=== PATIENT | female | born 2000 | race Caucasian/White ===

== ENCOUNTER 2019-03-24 18:42 | Emergency (ER) | payer SELFPAY ==
[2019-03-24 19:00] LABS: #Lymphocytes 1.8 thou/uL (1.20-3.40); #Monocytes 0.4 thou/uL (0.11-0.59); #Neutrophils 4.2 thou/uL (1.40-6.50); %Basophils 0.1 % (0.0-1.0); %Eosinophils 0.4 % (0.0-10.0); %Lymphocytes 28.3 % (28.0-48.0); %Monocytes 6.1 % (0.0-4.0); %Neutrophils 65.1 % (31.0-61.0); Hemoglobin 12.2 g/dL (12.0-16.0); Mean Corpuscular Hemoglobin 31.5 pg (25.0-35.0); Mean Corpuscular Volume 90.1 fL (78.0-98.0); Mean Platelet Volume 5.9 fL (7.4-10.4); Platelet Count 305 thou/uL (130-400); RBC Distribution Width 12.3 % (11.5-14.5); Red Blood Cell (RBC) Count 3.89 mill/uL (4.00-5.20); White Blood Cell (WBC) Count 6.5 thou/uL (4.8-10.8)
[2019-03-24 19:25] LABS: ALT (SGPT) 7 U/L (8-55); AST (SGOT) 15 U/L (5-34); Albumin 4.6 g/dL (3.5-5.0); Alkaline Phosphatase 33 U/L (40-150); Anion Gap 11 mmol/L (10-20); BUN (Urea Nitrogen) 14 mg/dL (7.0-18.7); Bilirubin, Total 0.3 mg/dL (0.2-1.2); Calc. Creatinine Clearance 0 mL/min (70-130); Calcium 9.5 mg/dL (7.8-10.44); Carbon Dioxide 25 mmol/L (22-29); Chloride 104 mmol/L (98-107); Estimated GFR-MDRD Greater than 90; Globulin 2.3 g/dL (2.4-3.5); Glucose 77 mg/dL (70-105); Lipase 16 U/L (8-78); Potassium 3.9 mmol/L (3.5-5.1); Protein, Total 6.9 g/dL (6.0-8.3); Sodium 136 mmol/L (136-145)
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
[2019-03-24 23:39] LABS: Bilirubin Negative (Negative); Blood, Urine Negative (Negative); Clarity Clear (Clear); Glucose, Urine (Dipstick) Normal (Negative); Leukocyte Negative Leu/uL (Negative); Nitrite Negative (Negative); Protein, Urine (Dipstick) 20 mg/dL (Neg-Trace); Urobilinogen Normal mg/dL (Less than 2)
[2019-03-24 23:44] LABS: Pregnancy Test - Urine (BHCG) Negative (Negative); Pregu Control Background? CLEAR/WHITE (CLR/WHITE); Pregu Control Bar Appear? YES (CONTROL BAR); Specific Gravity 1.034 (1.002-1.036)
[2019-03-28 00:08] LABS: Chlamydia by PCR Not Detected (NotDetected); GC by PCR Not Detected (NotDetected)
== END 2019-03-24 23:58 | disposition home or self-care (01) ==
LOC: ERS 18:42
DX: N76.0 Acute vaginitis (principal); N83.202 Unspecified ovarian cyst, left side; B96.89 Other specified bacterial agents as the cause of diseases classified elsewhere
CPT/HCPCS: 36415; 76856; 80053; 81003; 81025; 83690; 85025; 87480; 87491; 87510; 87591; 87660

== ENCOUNTER 2019-06-24 15:41 | Emergency (ER) | payer SELFPAY ==
[2019-06-24] MEDS ORDERED: Adacel (T-DAP) 0.5 ML SYRINGE ONE (16:42)
[2019-06-24] MEDS ORDERED: Ibuprofen 200 MG TAB ONE (16:42)
[2019-06-24] MEDS ORDERED: Bacitracin 1 PK ONE (16:42)
== END 2019-06-24 17:08 | disposition home or self-care (01) ==
LOC: ERS 15:41
DX: S00.33XA Contusion of nose, initial encounter (principal); S00.83XA Contusion of other part of head, initial encounter; W22.8XXA Striking against or struck by other objects, initial encounter
CPT/HCPCS: 90471; 90715

== ENCOUNTER 2019-10-14 23:16 | Inpatient (IN) | payer OTHER, SELFPAY ==
[~2019-10-14 23:16] MED LIST: Iopamidol 370 76% 100 ML VIAL ONE
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
[2019-10-14 23:48] LABS: #Lymphocytes 3.5 thou/uL (1.20-3.40); #Monocytes 0.5 thou/uL (0.11-0.59); #Neutrophils 10.1 thou/uL (1.40-6.50); %Basophils 0.3 % (0.0-1.0); %Eosinophils 0.3 % (0.0-10.0); %Lymphocytes 24.7 % (21.0-51.0); %Monocytes 3.7 % (0.0-10.0); Hemoglobin 11.6 g/dL (12.0-16.0); Mean Corpuscular HGB CONC 33.9 g/dL (32.0-36.0); Mean Corpuscular Hemoglobin 31.8 pg (27.0-31.0); Mean Corpuscular Volume 93.8 fL (78.0-98.0); Mean Platelet Volume 6.4 fL (7.4-10.4); Platelet Count 346 thou/uL (130-400); RBC Distribution Width 12.8 % (11.5-14.5); Red Blood Cell (RBC) Count 3.65 mill/uL (4.20-5.40); White Blood Cell (WBC) Count 14.1 thou/uL (4.8-10.8)
[2019-10-14 23:50] LABS: BHCG - Serum Negative (NEGATIVE); Pregs Control Background? CLEAR/WHITE (CLR/WHITE); Pregs Control Bar Appear? YES (CONTROL BAR)
[2019-10-14 23:58] LABS: ALT (SGPT) 16 U/L (8-55); AST (SGOT) 36 U/L (5-34); Albumin 3.9 g/dL (3.5-5.0); Alkaline Phosphatase 33 U/L (40-110); Anion Gap 13 mmol/L (10-20); BUN (Urea Nitrogen) 16 mg/dL (7.0-18.7); Bilirubin, Total 0.3 mg/dL (0.2-1.2); Calc. Creatinine Clearance 0 mL/min (70-130); Calcium 7.7 mg/dL (7.8-10.44); Carbon Dioxide 21 mmol/L (22-29); Chloride 109 mmol/L (98-107); Estimated GFR-MDRD Greater than 90; Globulin 2.3 g/dL (2.4-3.5); Glucose 130 mg/dL (70-105); Potassium 3.1 mmol/L (3.5-5.1); Protein, Total 6.2 g/dL (6.0-8.3); Sodium 140 mmol/L (136-145)
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
[2019-10-15] MEDS ORDERED: Morphine 4 MG/ML VIAL ONE
[2019-10-15] MEDS ORDERED: Ondansetron PF 4 MG/2 ML Vial ONE (00:01)
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
[2019-10-15 01:47] VITALS: BMI 23.1
[2019-10-15] MEDS ORDERED: Dextrose 50% Abboject 50 ML SYRINGE SLOW IVP PRN (01:48)
[2019-10-15] MEDS ORDERED: Dextrose 5% in Water 1,000 ML IV PRN (01:48)
[2019-10-15] MEDS ORDERED: Ondansetron ODT 4 MG TAB PO PRN (01:48)
[2019-10-15] MEDS ORDERED: Ondansetron PF 4 MG/2 ML Vial IVP PRN (01:48)
[2019-10-15] MEDS ORDERED: traMADol HCl 50 MG TAB PO PRN ×2 (01:48→22:20)
[2019-10-15] MEDS: traMADol HCl 50 MG TAB PO PRN ×2 (01:57→09:13)
[2019-10-15] MEDS: Sodium Chloride 0.9% 1,000 ML IV SCH ×3 (01:58→20:42)
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
[2019-10-15 02:42] LABS: Hemoglobin 10.6 g/dL (12.0-16.0)
[2019-10-15 04:10] LABS: Anion Gap 14 mmol/L (10-20); BUN (Urea Nitrogen) 15 mg/dL (7.0-18.7); Calc. Creatinine Clearance 105 mL/min (70-130); Calcium 7.9 mg/dL (7.8-10.44); Carbon Dioxide 20 mmol/L (22-29); Chloride 108 mmol/L (98-107); Estimated GFR-MDRD Greater than 90; Glucose 134 mg/dL (70-105); Sodium 138 mmol/L (136-145)
[2019-10-15 04:19] LABS: Band 32 % (5-11); Lymphocytes 2 % (21-51); MDiff Complete? YES; Mean Corpuscular HGB CONC 33.1 g/dL (32.0-36.0); Mean Corpuscular Hemoglobin 31.4 pg (27.0-31.0); Mean Corpuscular Volume 94.7 fL (78.0-98.0); Mean Platelet Volume 6.4 fL (7.4-10.4); Monocytes 3 % (0-10); Neutrophil 63 % (42-75); Platelet Count 295 thou/uL (130-400); Platelet Morphology Comment Appears Adequate; Red Blood Cell (RBC) Count 3.51 mill/uL (4.20-5.40); White Blood Cell (WBC) Count 22.4 thou/uL (4.8-10.8)
[2019-10-15] MEDS: Acetaminophen 325 MG TAB PO SCH ×2 (06:24→14:15)
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
[2019-10-15] MEDS: Famotidine 20 MG TAB PO SCH ×2 (09:12→20:41)
[2019-10-15 09:39] LABS: Hemoglobin 9.8 g/dL (12.0-16.0)
[2019-10-15] MEDS ORDERED: Acetaminophen 500 MG TAB PO PRN (12:56)
[2019-10-15] MEDS ORDERED: Ketorolac Tromethamine 30 MG/ML VIAL IVP PRN (12:56)
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
[2019-10-15 13:57] LABS: Hemoglobin 9.2 g/dL (12.0-16.0)
[2019-10-15 18:40] LABS: Hemoglobin 8.9 g/dL (12.0-16.0); Platelet Count 217 thou/uL (130-400)
[2019-10-15] MEDS: Cyclobenzaprine 10 MG TAB PO PRN (20:41)
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
[2019-10-16 03:35] LABS: Hemoglobin 8.2 g/dL (12.0-16.0); Platelet Count 188 thou/uL (130-400)
[2019-10-16] MEDS: Ferrous Sulfate 325 MG TAB PO SCH ×2 (09:35→16:03)
[2019-10-16] MEDS: traMADol HCl 50 MG TAB PO PRN (09:36)
[2019-10-16] MEDS: Ascorbic Acid 500 mg Chewable Tablet PO SCH (09:37)
[2019-10-16] MEDS: Acetaminophen 500 MG TAB PO SCH ×3 (09:42→20:51)
[2019-10-16] MEDS: Cyclobenzaprine 10 MG TAB PO PRN (12:20)
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
[2019-10-17] MEDS: traMADol HCl 50 MG TAB PO PRN ×3 (00:50→20:40)
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
[2019-10-17] MEDS: Acetaminophen 500 MG TAB PO SCH ×4 (02:23→20:16)
[2019-10-17 05:15] LABS: #Eosinphils 0.1 thou/uL (0.0-0.7); #Lymphocytes 1.6 thou/uL (1.20-3.40); #Monocytes 0.3 thou/uL (0.11-0.59); #Neutrophils 3.4 thou/uL (1.40-6.50); %Basophils 0.2 % (0.0-1.0); %Lymphocytes 29.7 % (21.0-51.0); %Monocytes 6.1 % (0.0-10.0); %Neutrophils 63.1 % (42.0-75.0); Hemoglobin 8.1 g/dL (12.0-16.0); Mean Corpuscular HGB CONC 34.1 g/dL (32.0-36.0); Mean Corpuscular Hemoglobin 31.9 pg (27.0-31.0); Mean Corpuscular Volume 93.6 fL (78.0-98.0); Mean Platelet Volume 6.4 fL (7.4-10.4); Platelet Count 199 thou/uL (130-400); RBC Distribution Width 12.9 % (11.5-14.5); Red Blood Cell (RBC) Count 2.54 mill/uL (4.20-5.40); White Blood Cell (WBC) Count 5.4 thou/uL (4.8-10.8)
[2019-10-17 05:37] LABS: Anion Gap 10 mmol/L (10-20); BUN (Urea Nitrogen) 10 mg/dL (7.0-18.7); Calc. Creatinine Clearance 113 mL/min (70-130); Calcium 8.2 mg/dL (7.8-10.44); Carbon Dioxide 26 mmol/L (22-29); Chloride 108 mmol/L (98-107); Estimated GFR-MDRD Greater than 90; Glucose 79 mg/dL (70-105); Phosphorus 3.5 mg/dL (2.3-4.7); Potassium 3.8 mmol/L (3.5-5.1); Sodium 140 mmol/L (136-145)
[2019-10-17] MEDS ORDERED: Bisacodyl 10 MG SUPP PR SCH (07:45)
[2019-10-17] MEDS: Gabapentin 100 MG CAP PO SCH ×2 (08:38→20:16)
[2019-10-17] MEDS: Ascorbic Acid 500 mg Chewable Tablet PO SCH (08:38)
[2019-10-17] MEDS: Senokot S 8.6-50 MG TAB PO SCH ×2 (08:39→20:16)
[2019-10-17] MEDS: Ferrous Sulfate 325 MG TAB PO SCH ×2 (08:39→17:18)
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
[2019-10-17] MEDS: Polyethylene Glycol 3350 17 GM Packet PO SCH (14:37)
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
[2019-10-18] MEDS: Acetaminophen 500 MG TAB PO SCH ×2 (02:47→09:05)
[2019-10-18 05:34] LABS: Hemoglobin 9.1 g/dL (12.0-16.0); Platelet Count 220 thou/uL (130-400)
[2019-10-18] MEDS: Ferrous Sulfate 325 MG TAB PO SCH (09:05)
[2019-10-18] MEDS: Polyethylene Glycol 3350 17 GM Packet PO SCH ×2 (09:05→09:11)
[2019-10-18] MEDS: Gabapentin 100 MG CAP PO SCH (09:05)
[2019-10-18] MEDS: Senokot S 8.6-50 MG TAB PO SCH (09:05)
[2019-10-18] MEDS: Ascorbic Acid 500 mg Chewable Tablet PO SCH (09:05)
[2019-10-18 11:23] VITALS: BP 120/82; TEMP 98.4
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
== END 2019-10-18 13:54 | disposition home or self-care (01) | DRG 964 ==
LOC: ERS 23:16 → IMCU/EMU 10-15 01:41 → SURG B 10-16 11:46
PROVIDERS: ADMIT Specialist; ATTEND Specialist
DX: S36.032A Major laceration of spleen, initial encounter (principal); S06.0X9A Concussion with loss of consciousness of unspecified duration, initial encounter; S27.321A Contusion of lung, unilateral, initial encounter; S22.32XA Fracture of one rib, left side, initial encounter for closed fracture; S30.811A Abrasion of abdominal wall, initial encounter; S80.212A Abrasion, left knee, initial encounter; S80.211A Abrasion, right knee, initial encounter; S70.312A Abrasion, left thigh, initial encounter; R40.2413 Glasgow coma scale score 13-15, at hospital admission; V47.5XXA Car driver injured in collision with fixed or stationary object in traffic accident, initial encounter
CPT/HCPCS: 36415; 70450; 71045; 71260; 72125; 72170; 74177; 80048; 80053; 83735; 84100; 84703; 85014; 85018; 85025; 85049; 86900; 86901; 96374; 96375; G0390; J2270; J2405; Q9967

== ENCOUNTER 2021-03-22 10:36 | Emergency (ER) | payer SELFPAY ==
[2021-03-22 11:42] LABS: #Lymphocytes 0.8 thou/uL (1.20-3.40); #Monocytes 0.2 thou/uL (0.11-0.59); #Neutrophils 6.6 thou/uL (1.40-6.50); %Basophils 0.5 % (0.0-1.0); %Eosinophils 0.6 % (0.0-10.0); %Lymphocytes 10.9 % (21.0-51.0); %Monocytes 2.2 % (0.0-10.0); %Neutrophils 85.9 % (42.0-75.0); Hemoglobin 13.5 g/dL (12.0-16.0); Mean Corpuscular HGB CONC 33.7 g/dL (32.0-36.0); Mean Corpuscular Hemoglobin 31.7 pg (27.0-31.0); Mean Platelet Volume 6.4 fL (7.4-10.4); Platelet Count 301 thou/uL (130-400); RBC Distribution Width 12.9 % (11.5-14.5); Red Blood Cell (RBC) Count 4.27 mill/uL (4.20-5.40); White Blood Cell (WBC) Count 7.7 thou/uL (4.8-10.8)
[2021-03-22] MEDS ORDERED: Ondansetron PF 4 MG/2 ML Vial ONE ×2 (12:01→12:03)
[2021-03-22 12:04] LABS: ALT (SGPT) 14 U/L (8-55); AST (SGOT) 22 U/L (5-34); Albumin 4.4 g/dL (3.5-5.0); Alkaline Phosphatase 34 U/L (40-110); Anion Gap 11 mmol/L (10-20); BUN (Urea Nitrogen) 17 mg/dL (7.0-18.7); Bilirubin, Total 0.4 mg/dL (0.2-1.2); Calc. Creatinine Clearance 0 mL/min (70-130); Calcium 9.5 mg/dL (7.8-10.44); Carbon Dioxide 28 mmol/L (22-29); Chloride 104 mmol/L (98-107); Globulin 3.1 g/dL (2.4-3.5); Glucose 96 mg/dL (70-105); Potassium 3.9 mmol/L (3.5-5.1); Protein, Total 7.5 g/dL (6.0-8.3); Sodium 139 mmol/L (136-145)
[2021-03-22 12:13] LABS: Bacteria/HPF None Seen HPF (None Seen); Bilirubin Negative (Negative); Blood, Urine Negative (Negative); Clarity Clear (Clear); Glucose, Urine (Dipstick) Normal (Negative); Ketone, Urine Negative (Negative); Leukocyte Negative Leu/uL (Negative); Nitrite Negative (Negative); Protein, Urine (Dipstick) 50 mg/dL (Neg-Trace); RBC/HPF 0-3 HPF (0-3); Specific Gravity, Urine 1.022 (1.002-1.036); Squamous Epithelial 0-3 HPF (0-3); Urobilinogen Normal mg/dL (Less than 2); WBC/HPF 0-3 HPF (0-3); pH, Urine 8.5 (5.0-9.0)
[2021-03-22 12:15] LABS: Pregnancy Test - Urine (BHCG) Negative (Negative); Pregu Control Background? CLEAR/WHITE (CLR/WHITE); Pregu Control Bar Appear? YES (CONTROL BAR); Specific Gravity 1.022 (1.002-1.036)
[2021-03-22 12:20] LABS: Amphetamine Not Detected (NotDetected); Barbiturates Screen Not Detected (NotDetected); Benzodiazepine Screen Not Detected (NotDetected); Cocaine Metabolite Screen Not Detected (NotDetected); Methadone Not Detected (NotDetected); Methamphetamine Not Detected (NotDetected); Opiate Screen Not Detected (NotDetected); Oxycodone Screen Not Detected (NotDetected); Phencyclidine (PCP) Not Detected (NotDetected); THC/Cannabinoid Screen Detected (NotDetected); Tricyclic Screen Not Detected (NotDetected)
== END 2021-03-22 13:25 | disposition home or self-care (01) ==
LOC: ERS 10:36
DX: R11.2 Nausea with vomiting, unspecified (principal); F17.290 Nicotine dependence, other tobacco product, uncomplicated
CPT/HCPCS: 36415; 80053; 80306; 81003; 81015; 81025; 85025; 94760; 96374; J2405

== ENCOUNTER 2021-06-15 10:28 | Emergency (ER) | payer BC, SELFPAY ==
[2021-06-15 11:36] LABS: Bilirubin Negative (Negative); Blood, Urine 2+ (Negative); Glucose, Urine (Dipstick) Normal (Negative); Ketone, Urine Negative (Negative); Leukocyte 500 Leu/uL (Negative); Nitrite Negative (Negative); Protein, Urine (Dipstick) Negative (Neg-Trace); RBC/HPF 0-3 HPF (0-3); Specific Gravity, Urine 1.014 (1.002-1.036); Squamous Epithelial 0-3 HPF (0-3); Urobilinogen Normal mg/dL (Less than 2); WBC/HPF Greater than 50 HPF (0-3); pH, Urine 6.5 (5.0-9.0)
[2021-06-15 11:40] LABS: Pregnancy Test - Urine (BHCG) Negative (Negative); Pregu Control Background? CLEAR/WHITE (CLR/WHITE); Pregu Control Bar Appear? YES (CONTROL BAR); Specific Gravity 1.014 (1.002-1.036)
[2021-06-15 11:46] LABS: Bacteria/HPF 1+ HPF (None Seen); Clarity Cloudy (Clear)
== END 2021-06-15 12:16 | disposition home or self-care (01) ==
LOC: ERS 10:28
DX: N10 Acute pyelonephritis (principal); F17.290 Nicotine dependence, other tobacco product, uncomplicated
CPT/HCPCS: 81003; 81015; 81025; 99284